=== PATIENT | female | born 2000 | race Caucasian/White ===

== ENCOUNTER 2020-03-24 13:18 | Emergency (ER) | payer OTHER, MEDICAID, SELFPAY ==
[~2020-03-24] VITALS: Ht 160 cm; Wt 59.0 kg
[2020-03-24 15:58] LABS: BASOPHIL % 0.4 % (0.2-1.3); PLATELET COUNT 359 x10^3mcL (179-408); RED CELL DISTRIBUTION WIDTH 13.3 % (12.3-17.7)
[2020-03-24 16:00] LABS: CALCIUM 8.3 mg/dL (8.5-10.1); CHLORIDE SERUM 116 mmol/L (98-107); CREATININE SERUM 0.9 mg/dL (0.6-1.0); GFR1 > 60 mL/min; GLUCOSE SERUM 91 mg/dL (74-106); POTASSIUM SERUM 3.9 mmol/L (3.5-5.1); SODIUM SERUM 149 mmol/L (136-145)
[2020-03-24 16:07] LABS: ALKALINE PHOSPHATASE 67 U/L (46-116); ALT/SGPT 20 U/L (14-59); AST/SGOT 11 U/L (15-37); C REACTIVE PROTEIN 8.2 mg/dL (<=0.9); LACTIC DEHYDROGENASE (LDH) 154 U/L (100-190); TOTAL PROTEIN, SERUM 6.2 g/dL (6.4-8.2)
[2020-03-24 18:27] LABS: microscopic required? NO
[2020-03-24 18:39] LABS: urine erythrocyte NEGATIVE (NEGATIVE)
[2020-03-25 20:30] VITALS: BP 104/54
== END 2020-03-25 20:30 | disposition short-term general hospital (02) ==
LOC: ED 13:18
PROVIDERS: Emergency Medicine
DX: G40.901 Epilepsy, unspecified, not intractable, with status epilepticus (principal); K59.00 Constipation, unspecified; Z20.828 Contact with and (suspected) exposure to other viral communicable diseases
CPT/HCPCS: 83880; 85378; 87804; J2060; J7030; U0003